=== PATIENT | female | born 1965 | race American Indian/Alaskan Native ===

== ENCOUNTER 2017-11-06 16:23 | Emergency (ER) | payer OTHER ==
[2017-11-06 16:42] VITALS: BP 164/99
[2017-11-06 17:59] LABS: Bilirubin,Urine NEG (Negative); Blood,Urine NEG (Negative); Color,Urine Yellow (Yellow); Mucus,Urine 3+ /HPF
[2017-11-06 18:01] LABS: HCG Qualitative,Urine Negative (Negative)
[2017-11-06] MEDS ORDERED: TORADOL IM ONE (20:09)
--- NOTE | 2017-11-06 21:04 | Emergency Department Report ---
ED Neck Pain/Injury HPI - General Chief Complaint: Extremity Injury, Upper Stated Complaint: PAIN ON LEFT SIDE, LEFT HAND NUMB Time Seen by Provider: 11/06/17 20:08 Mode of arrival: Ambulatory Limitations: No Limitations - History of Present Illness Initial Comments: This is a 52-year-old female nontoxic, well nourished in appearance, no acute signs of distress presents to the ED with c/o of acute on chronic left sided neck pain x1 week. Patient stated that the past 1 week she has been lifting paper boxes at work. Patient states that pain radiates through to her left upper extremity and describes it as tingling sensation. Patient denies any trauma. Patient has also a secondary complaint of dysuria, urinary frequency, and urgency. Denies any bladder or bowel instability. Patient denies any urinary symptoms. Denies any fever, chills, nausea, vomiting, headache, stiff neck, chest pain or shortness of breath. Patient denies any numbness or tingling. Denies any allergies. Denies significant past medical history. MD Complaint: neck pain (left side) -: week(s) (1) Place: home Radiation: left upper extremity Severity: mild Severity scale (0 -10): 3 Quality: tingling Consistency: intermittent Improves With: immobilization Worsens With: movement of neck Associated Symptoms: none. denies: headache, fever, numbness, tingling, weakness, vertigo, difficulty walking, swollen glands, difficulty swallowing, nausea, vomiting Treatments Prior to Arrival: none - Related Data Previous Rx's Medication Instructions Recorded Last Taken Type Dexlansoprazole [Dexilant] 60 mg PO QDAY #15 08/18/15 Unknown Rx Ibuprofen [Motrin] 600 mg PO Q8H PRN #50 tablet 08/18/15 Unknown Rx traMADol [Ultram] 50 mg PO Q6HR PRN #20 tablet 08/18/15 Unknown Rx Cyclobenzaprine [Flexeril] 10 mg PO BID PRN #14 tablet 11/06/17 Unknown Rx Ibuprofen [Motrin] 600 mg PO Q8H PRN #30 tablet 11/06/17 Unknown Rx Prednisone [predniSONE 10 mg 10 mg PO .TAPER #1 tab.ds.pk 11/06/17 Unknown Rx (6-Day Pack, 21 Tabs)] Sulfamethoxazole/Trimethoprim 1 each PO BID #14 tablet 11/06/17 Unknown Rx [Bactrim DS TAB] Allergies Allergy/AdvReac Type Severity Reaction Status Date / Time No Known Allergies Allergy Unverified 11/06/17 16:38 ED Review of Systems ROS: Stated complaint: PAIN ON LEFT SIDE, LEFT HAND NUMB Other details as noted in HPI Constitutional: denies: chills, fever Eyes: denies: eye pain, eye discharge, vision change ENT: denies: ear pain, throat pain Respiratory: denies: cough, shortness of breath, wheezing Cardiovascular: denies: chest pain, palpitations Endocrine: no symptoms reported Gastrointestinal: denies: abdominal pain, nausea, diarrhea Genitourinary: urgency, dysuria, frequency. denies: hematuria, discharge Musculoskeletal: arthralgia. denies: back pain, joint swelling Skin: denies: rash, lesions Neurological: denies: headache, weakness, paresthesias Psychiatric: denies: anxiety, depression Hematological/Lymphatic: denies: easy bleeding, easy bruising ED Past Medical Hx - Past Medical History Previous Medical History?: Yes Hx Hypertension: No Additional medical history: heart murmur, hernia - Surgical History Past Surgical History?: Yes Additional Surgical History: scar removal - Social History Smoking Status: Never Smoker Substance Use Type: None - Medications Home Medications: Home Medications Medication Instructions Recorded Confirmed Last Taken Type Dexlansoprazole [Dexilant] 60 mg PO QDAY #15 08/18/15 Unknown Rx Ibuprofen [Motrin] 600 mg PO Q8H PRN #50 tablet 08/18/15 Unknown Rx traMADol [Ultram] 50 mg PO Q6HR PRN #20 tablet 08/18/15 Unknown Rx Cyclobenzaprine [Flexeril] 10 mg PO BID PRN #14 tablet 11/06/17 Unknown Rx Ibuprofen [Motrin] 600 mg PO Q8H PRN #30 tablet 11/06/17 Unknown Rx Prednisone [predniSONE 10 mg 10 mg PO .TAPER #1 tab.ds.pk 11/06/17 Unknown Rx (6-Day Pack, 21 Tabs)] Sulfamethoxazole/Trimethoprim 1 each PO BID #14 tablet 11/06/17 Unknown Rx [Bactrim DS TAB] ED Physical Exam - General Limitations: No Limitations General appearance: alert, in no apparent distress - Head Head exam: Present: atraumatic, normocephalic - Eye Eye exam: Present: normal appearance Pupils: Present: normal accommodation - ENT ENT exam: Present: normal exam, mucous membranes moist - Neck Neck exam: Present: normal inspection, full ROM. Absent: tenderness, meningismus, lymphadenopathy - Respiratory Respiratory exam: Present: normal lung sounds bilaterally. Absent: respiratory distress, wheezes, rales, rhonchi, stridor, chest wall tenderness, accessory muscle use, decreased breath sounds, prolonged expiratory - Cardiovascular Cardiovascular Exam: Present: regular rate, normal rhythm, normal heart sounds. Absent: bradycardia, tachycardia, irregular rhythm, systolic murmur, diastolic murmur, rubs, gallop - GI/Abdominal GI/Abdominal exam: Present: soft, normal bowel sounds. Absent: distended, tenderness, guarding, rebound, rigid, diminished bowel sounds - Rectal Rectal exam: Present: deferred - Extremities Exam Extremities exam: Present: normal inspection, full ROM, normal capillary refill. Absent: tenderness, joint swelling - Back Exam Back exam: Present: normal inspection, full ROM, paraspinal tenderness (left cervical paraspinal). Absent: tenderness, CVA tenderness (R), CVA tenderness (L ), muscle spasm, vertebral tenderness, rash noted - Expanded Back Exam Expanded Back exam: Absent: saddle anesthesia Back exam: Negative Straight Leg Raising: Left, Right - Neurological Exam Neurological exam: Present: alert, oriented X3, normal gait - Psychiatric Psychiatric exam: Present: normal affect, normal mood - Skin Skin exam: Present: warm, dry, intact, normal color. Absent: rash ED Course Vital Signs 11/06/17 11/06/17 16:32 20:38 Temperature 98.3 F Pulse Rate 87 Respiratory 16 18 Rate Blood Pressure 164/99 O2 Sat by Pulse 97 Oximetry - Reevaluation(s) Reevaluation #1: 11/06/17 21:04 Patient is speaking in full sentences with no signs of distress noted. ED Medical Decision Making - Medical Decision Making This is a 52-year-old male that presents with cervical radiculopathy and possible UTI. Patient is stable was examined by me. There is no spinal tenderness. There is no cauda equina syndrome during examination. No bladder or bowel instability. UA normal but due to the symptoms i will treat patient empirically with Bactrim. Urine culture is pending. Patient received Toradol 30 mg IM in the ED which stated that symptoms has resolved and subsided. Patient is discharged with muscle relaxant and Motrin. Patient was instructed not to operate any machinery while taking muscle relaxant as they cause her drowsiness. Patient was referred to Follow-up with a primary care doctor in 3- 5 days or if symptoms worsen and continue return to emergency room as soon as possible. At time of discharge, the patient does not seem toxic or ill in appearance. No acute signs of distress noted. Patient agrees to discharge treatment plan of care. No further questions noted by the patient. This chart is dictated with using [employer] Critical care attestation.: If time is entered above; I have spent that time in minutes in the direct care of this critically ill patient, excluding procedure time. ED Disposition Clinical Impression: Cervical radiculopathy, Dysuria Disposition: TO HOME OR SELFCARE Is pt being admited?: No Does the pt Need Aspirin: No Condition: Stable Instructions: Cervical Radiculopathy (ED), Cyclobenzaprine (By mouth) Additional Instructions: Follow-up with your primary care doctor in 3-5 days or if symptoms worsen such as bladder or bowel stability, chest pain, short of breath, numbness or tingling sensation in extremities, headache, dizziness, visual changes, nausea vomiting, or abdominal pain, return back to emergency room as was possible. Take ibuprofen and Flexeril as prescribed. Do not operate heavy machinery while taking Flexeril due to sedation Prescriptions: Cyclobenzaprine [Flexeril] 10 mg PO BID PRN #14 tablet PRN Reason: Muscle Spasm Ibuprofen [Motrin] 600 mg PO Q8H PRN #30 tablet PRN Reason: Pain Prednisone [predniSONE 10 mg (6-Day Pack, 21 Tabs)] 10 mg PO .TAPER #1 tab.ds.pk Sulfamethoxazole/Trimethoprim [Bactrim DS TAB] 1 each PO BID #14 tablet Referrals: PRIMARY CARE, [Primary Care Provider] - 3-5 Days SALVATORE REYES MD [Staff Physician] - 3-5 Days [facility] [Outside] - 3-5 Days [facility] [Outside] - 3-5 Days Forms: Work/School Release Form(ED)
== END 2017-11-06 21:15 | disposition home or self-care (01) ==
LOC: ED 16:23
DX: M54.12 Radiculopathy, cervical region (principal); R30.0 Dysuria; R35.0 Frequency of micturition
CPT/HCPCS: 81001; 81025; 87086; 96372; 99283; J1885